=== PATIENT | male | born 1950 | race Caucasian/White ===

== ENCOUNTER 2021-01-31 12:20 | Outpatient (CLI) | payer MEDICARE, OTHER, SELFPAY ==
--- NOTE | 2021-01-31 17:51 | ONC CON_ITS ---
Dr. Alcantar New Patient Note Patient: Dmitriy Dos Santos Unit #: [id number]: 1950 Dicatated By: Singh Alcantar M.D.Date of Visit: Jan 31, 2021 Onc MED New Patient/Consult Referring Physician: Dr. Kayden Santos M.D. Chief Complaint: Prostate cancer. 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 His prostate cancer was initially diagnosed in 2015. The baseline PSA has not included in the records which are currently available. He underwent radical prostatectomy on 01/17/2016. Pathology showed Fannie score 7 (4+3) adenocarcinoma involving both lobes. The proportion of prostate involved was estimated at 10%. There was noted to be involvement of the left distal apical margin. There was no extraprostatic extension at the involved margin. There was no involvement in 8 lymph nodes. Pathologic staging was pT2c, pN0. His PSA became undetectable postoperatively. However, as of November 2016 it had increased to 0.1 ng/mL. He was then seen by Dr. Cano for radiation oncology consultation and he underwent salvage radiotherapy to the prostate bed. He completed treatment on 03/27/2017 to a total dose of 7200 cGy. A repeat PSA level on 04/30/2017 was down to 0.05 ng/mL. During subsequent follow-up he apparently has had detectable PSA at a very low level. As of 06/22/2020 it was 0.1 ng/mL. His repeat PSA level on 01/15/2021 was unchanged at 0.1 ng/mL. He is seen now for further management of the prostate cancer. He also is seeing Dr. Enamorado now. He feels pretty good generally, though he does tire out more easily than he used to. His ECOG score is 1. He has good appetite and his weight is stable. He has no fever, night sweats, or hot flashes. He does not complain of shortness of breath, cough, or chest pain. He has no GI complaints other than occasional heartburn, which he manages with [id number] medication. He does have urinary frequency and nocturia, and he has had some ongoing problems with incontinence since his radiation. He has joint pain, mainly in his knees. He says it has been getting worse during the past year. He does not complain of headache or dizziness and he has no focal neurologic symptoms. He has had some problems with anxiety and insomnia, those have been adequately managed with trazodone. Past Medical History: His medical history includes atrial fibrillation, hyperlipidemia, hypertension, and prostate cancer. Past Surgical History: He underwent robotic assisted radical prostatectomy on 01/17/2016. His other surgical/procedural history includes rthroscopic knee surgery, left inguinal hernia repair in 2019, and right inguinal hernia repair in 1989. Medications: Flecainide Acetate 1 Tablet (of 50 mg) Oral b.i.d., Lovastatin 1 Tablet (of 20 mg) Tablet Oral daily, Metoprolol Tartrate 0.5 Tablet (of 25 mg) Oral b.i.d., Oxybutynin Chloride ER 1 Tablet (of 5 mg) Tablet SR 24 HR Oral daily, traZODone HCl 1 Tablet (of 50 mg) Oral daily, Xarelto 1 Tablet (of 20 mg) Oral daily Allergies: No Known Allergies. Social History: Mr. Dos Santos is and he is retired. He has history of smoking for approximately 30 years, up to 2 packs of cigarettes daily. He quit smoking in 1996. He had some alcohol use as a teenager, but none since then. Family History: Father still living at age 95. He has valvular heart disease. Mother at age 88 with diabetes, kidney failure, and congestive heart failure. He has 4 brothers, 3 of whom have diabetes. His maternal grandmother had colon cancer. Review Of Symptoms: Constitutional - He generally feels pretty good. His energy is fair. He mostly has normal activity, but he does get tired very easily. His appetite is good and his weight is stable. No fever, night sweats, or hot flashes. ECOG score is 1, Eyes - No change in vision, ENMT - He has hearing loss and tinnitus. He has chronic seasonal allergies. No mouth sores. Denies any throat pain or dysphagia, Hematologic/Lymphatic - He has some bruising on his blood thinner, Respiratory - No shortness of breath. No cough. No pleuritic pain or hemoptysis, Cardiovascular - No angina pain. No palpitations, Gastrointestinal - No nausea or vomiting. He has occasional heartburn. No diarrhea or constipation. No blood in the stool or black stools, Genitourinary (M) - No dysuria or hematuria. He has urinary frequency with urgency. He has some incontinence, mainly at night, Musculoskeletal - He has joint pain, especially in his knees. It has been getting worse during the past year, Integumentary - No skin eruption, Neurologic - No headache or dizziness. No numbness or tingling. No other focal neurologic symptoms, Psychiatric - He has occasional mild anxiety. No depression. He sleeps well with trazodone. Vital Signs: Performed on Jan 31, 2021 12:57: 0, 0, 28.21, 2.21 sq.m, 73.00 in, 97 %, 57 /min (LOW), 18 /min, 148/80 mm(hg) (HIGH), 97.7 F (LOW), and 213.8 lbs (HIGH). Physical Examination: Constitutional - He appears to be in good general health, Eyes - Sclerae nonicteric. Conjunctivae clear, ENMT - No lesions noted in the oral cavity, Neck - No mass or thyromegaly, Hematologic/Lymphatic - No cervical, clavicular, or axillary adenopathy, Respiratory - Lungs are clear with good air movement bilaterally, Cardiovascular - Heart rhythm is regular. There is no murmur, gallop, or rub noted, Abdomen - Soft and non-tender. Liver and spleen are not enlarged. There is no abdominal mass or ascites noted and there is no inguinal adenopathy, Back/Spine - No spine or CVA tenderness noted, Extremities - No edema. He has good pedal pulses bilaterally, Integumentary - No rashes. No suspicious skin lesions noted, Neurologic - No focal neurologic deficits noted. Problem List: 1. Adenocarcinoma of the prostate, Foster score 7 (4+3), stage IIC at initial diagnosis in December 2015. 2. Hypertension. 3. Hyperlipidemia. 4. Atrial fibrillation. 5. Degenerative arthritis. Problems Addressed with this Encounter and Plan: Patient with adenocarcinoma of the prostate, Foster score 7 (4+3), for which he underwent radical prostatectomy on 01/17/2016. His disease was pathologic stage IIC (pT2c, pN0, M0), but with involved left distal apical margin. He had evidence of biochemical recurrence in November 2016. He then underwent salvage radiation to the prostate bed. He completed treatment on 03/27/2017 to a total dose of 7200 cGy. During follow-up his PSA remained detectable at a low level. As of 06/22/2020 it increased to 0.1 ng/mL compared to 0.05 ng/mL in April 2017. As of 01/15/2021 it remained stable at 0.1 ng/mL. We discussed the fact that the detectable PSA level is almost certainly an indication that there is residual prostate cancer. However, it is very unlikely that it would be identifiable by imaging, and there is certainly no indication that it is symptomatic. The next line of treatment will be androgen deprivation therapy. While it will undoubtedly be effective in controlling his disease, it also will add some side effects, and the issue at hand is at what point it will be appropriate for him to begin treatment. With his PSA level stable at a very low level, my recommendation would be to continue observation/expectant management. If it begins to show a significant increase, I will then have him undergo staging evaluation and consider starting treatment with an LHRH analog in combination with antiandrogen therapy. He is currently scheduled to have a yearly follow-up visit with Dr. Santos in May. He will have repeat PSA level with that visit. If it has not changed significantly, he can continue expectant management, and I will then schedule further follow-up with him at 3-month intervals. Signed By: Singh Alcantar M.D. <<Signature on File>>
== END 2021-01-31 12:21 | disposition home or self-care (01) ==
LOC: ONCMED 12:24
PROVIDERS: Family Provider Family Medicine; PCP Family Medicine; Visit Provider Internal Medicine Medical Oncology
DX: C61 Malignant neoplasm of prostate (principal); R33.9 Retention of urine, unspecified; Z90.79 Acquired absence of other genital organ(s); Z92.3 Personal history of irradiation
CPT/HCPCS: 81003; 99205

== ENCOUNTER → 2021-08-06 08:26 | Outpatient (BNVA) | payer MEDICARE, OTHER, SELFPAY | PROVIDERS: Family Provider Family Medicine; PCP Family Medicine; Visit Provider Urology | DX: C61 Malignant neoplasm of prostate (principal); N48.1 Balanitis; N39.3 Stress incontinence (female) (male) | CPT/HCPCS: 81003 ==

== ENCOUNTER 2021-08-26 10:35 | Outpatient (CLI) | payer MEDICARE, OTHER, SELFPAY ==
[2021-08-26 10:58] LABS: Basophils # 0.1 10^3/uL (0.0-0.1); Basophils % 0.7 %; Eosinophils # 0.3 10^3/uL (0.0-0.8); Eosinophils % 3.7 %; Hematocrit 44.3 % (42.0-52.0); Hemoglobin 14.3 g/dL (11.7-16.6); Lymphocytes # 1.6 10^3/uL (0.8-4.8); Mean Corpuscular HGB Conc 32.3 g/dL (30.0-36.0); Mean Corpuscular Hemoglobin 31.4 pg (28.0-34.0); Mean Corpuscular Volume 97.1 fl (80-94); Mean Platelet Volume 9.1 fL (7.4-10.4); Monocytes # 0.9 10^3/uL (0.2-0.9); Monocytes % 12.1 %; Neutrophils # 4.59 10^3/uL (1.8-7.7); Neutrophils % 62.2 %; Nucleated Red Blood Cells % 0 %; Platelet Count 233 10^3/cmm (130-400); Red Blood Count 4.56 10^6/uL (4.1-5.3); Red Cell Distribution Width 12.9 % (12.1-15.1); White Blood Count 7.4 10^3/uL (4.0-10.0)
[2021-08-26 11:26] LABS: Prostate Specific Antigen 0.078 ng/mL (0-4)
[2021-08-26 11:37] LABS: Alanine Aminotransferase 25 U/L (0-41); Albumin Level 4.1 g/dL (3.5-5.2); Alkaline Phosphatase 94 IU/L (40-130); Anion Gap 12.5 (5-19); Aspartate Amino Transferase 26 U/L (0-40); Blood Urea Nitrogen 16 mg/dL (8-23); Calcium 8.8 mg/dL (8.5-10.5); Carbon Dioxide 28 mmol/L (22-29); Chloride 101 mmol/L (98-107); Globulin 2.5 g/dL (1.3-4.6); Glucose 100 mg/dL (65-115); Osmolality Calculated 285 mOsm/kg (285-295); Potassium 4.5 mmol/L (3.5-5.1); Sodium 137 mmol/L (136-145); Total Bilirubin 0.8 mg/dL (0.15-1.2); Total Protein 6.6 g/dL (6.6-8.7)
--- NOTE | 2021-08-30 07:41 | ONC FU_ITS ---
Dr. Alcantar Patient Follow-Up Note Patient: Dmitriy Dos Santos Unit #: [id number]: 1950 Dicatated By: Singh Alcantar M.D.Date of Visit:Aug 26, 2021 Onc Med Follow-up/Prog Note Chief Complaint: Prostate cancer. 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 His prostate cancer was initially diagnosed in 2015. The baseline PSA has not included in the records which are currently available. He underwent radical prostatectomy on 01/17/2016. Pathology showed Ormsby score 7 (4+3) adenocarcinoma involving both lobes. The proportion of prostate involved was estimated at 10%. There was noted to be involvement of the left distal apical margin. There was no extraprostatic extension at the involved margin. There was no involvement in 8 lymph nodes. Pathologic staging was pT2c, pN0. His PSA became undetectable postoperatively. However, as of November 2016 it had increased to 0.1 ng/mL. He was then seen by Dr. Cano for radiation oncology consultation and he underwent salvage radiotherapy to the prostate bed. He completed treatment on 03/27/2017 to a total dose of 7200 cGy. A repeat PSA level on 04/30/2017 was down to 0.05 ng/mL. During subsequent follow-up he apparently has had detectable PSA at a very low level. As of 06/22/2020 it was 0.1 ng/mL. His repeat PSA level on 01/15/2021 was unchanged at 0.1 ng/mL. I had seen him initially on 01/31/2021. We discussed the option of initiating androgen deprivation, but with his being asymptomatic and having just slightly elevated PSA, we opted initially to manage with observation. His other medical illnesses include hypertension, hyperlipidemia, atrial fibrillation, and degenerative arthritis. He has history of smoking for 30 years, up to 2 packs of cigarettes daily, but he quit smoking back in 1996. He is seen for a follow-up visit. He reports having some mild fatigue. He also complains that he is sore all over, but that he attributes to physical activity. His ECOG score is 0. His appetite is pretty good. He does not have fever, night sweats, or hot flashes. He has some allergy related sinus symptoms and he occasionally has sore throat. He does not complain of cough, and he has not been having shortness of breath or chest pain. He has no GI complaints. Bladder function remains adequate, though he does have some leakage. He does not complain of headache or dizziness, and he has no focal neurologic symptoms. Medications: Flecainide Acetate 1 Tablet (of 50 mg) Oral b.i.d., Lovastatin 1 Tablet (of 20 mg) Tablet Oral daily, Metoprolol Tartrate 0.5 Tablet (of 25 mg) Oral b.i.d., Oxybutynin Chloride ER 1 Tablet (of 5 mg) Tablet SR 24 HR Oral daily, traZODone HCl 1 Tablet (of 50 mg) Oral daily, Xarelto 1 Tablet (of 20 mg) Oral daily Allergies: No Known Allergies. Vital Signs: Performed on Aug 26, 2021 12:31 Height - 73.00 in Weight - 217.4 lbs (HIGH) BSA - 2.23 sq.m BMI - 28.68 Temperature - 97.2 F (LOW) Pulse - 71 /min Respiration - 18 /min BP - 162/91 mm(hg) (HIGH) O2 Sat - 98 % Pain - 0 Fatigue - 0 Physical Examination: Constitutional - He looks good generally, Eyes - Sclerae nonicteric. Conjunctivae clear, ENMT - No lesions noted in the oral cavity, Hematologic/Lymphatic - No cervical, clavicular, or axillary adenopathy, Respiratory - Lungs are clear with good air movement bilaterally, Cardiovascular - Heart rhythm is regular. There is no murmur, gallop, or rub noted, Abdomen - Soft. Liver and spleen are not enlarged. There is no abdominal mass or ascites noted and there is no inguinal adenopathy, Extremities - No edema, Neurologic - No focal neurologic deficits noted. Lab/Imaging: Test performed on Aug 26, 2021 10:00 Sodium 137 mmol/L Potassium 4.5 mmol/L Chloride 101 mmol/L CO2 28 mmol/L Anion Gap 12.5 BUN 16 mg/dL Creatinine 0.9 mg/dL Cr Clearance (Est) 105.00 mL/min Glucose 100 mg/dL Osmolality - Calculated 285 mOsm/kg Calcium 8.8 mg/dL Protein, Total 6.6 g/dL Albumin 4.1 g/dL Globulin 2.5 g/dL Bilirubin, Total 0.8 mg/dL ALT (SGPT) 25 U/L AST (SGOT) 26 U/L Alkaline Phosphatase 94 IU/L WBC 7.4 10 3/uL RBC 4.56 10 6/uL HGB 14.3 g/dL HCT 44.3 % MCV 97.1 fl MCH 31.4 pg MCHC 32.3 g/dL RDW 12.9 % Platelet Count 233 10 3/cmm MPV 9.1 fL Neutrophils 4.59 10 3/uL Lymphocytes 1.6 10 3/uL Monocytes 0.9 10 3/uL Eosinophils 0.3 10 3/uL Basophils 0.1 10 3/uL Neutrophil % 62.2 % Lymphocyte % 21.0 % Monocyte % 12.1 % Eosinophil % 3.7 % Basophils % 0.7 % NRBC % 0 % PSA 0.078 ng/mL Problem List: 1. Adenocarcinoma of the prostate, Fannie score 7 (4+3), stage IIC at initial diagnosis in December 2015. 2. Hypertension. 3. Hyperlipidemia. 4. Atrial fibrillation. 5. Degenerative arthritis. Problems Addressed with this Encounter and Plan: Patient with adenocarcinoma of the prostate, Fannie score 7 (4+3), for which he underwent radical prostatectomy on 01/17/2016. His disease was pathologic stage IIC (pT2c, pN0, M0), but with involved left distal apical margin. He had evidence of biochemical recurrence in November 2016. He then underwent salvage radiation to the prostate bed. He completed treatment on 03/27/2017 to a total dose of 7200 cGy. During follow-up his PSA remained detectable at a low level. As of 06/22/2020 it increased to 0.1 ng/mL compared to 0.05 ng/mL in April 2017. As of 01/15/2021 it remained stable at 0.1 ng/mL. I had seen him initially in January 2021. In this setting of asymptomatic disease which is slightly elevated PSA, we opted initially to just follow on expectant management. At this point he appears to be doing very well clinically, and thus far there has been no further increase in the PSA level. As such, I will continue to follow him expectantly. He will be scheduled for repeat PSA level in 3 months and for a follow-up visit in 6 months. Signed By: Singh Alcantar M.D. <<Signature on File>>
== END 2021-08-26 10:36 | disposition home or self-care (01) ==
LOC: ONCMED 10:39
PROVIDERS: Family Provider Family Medicine; PCP Family Medicine; Visit Provider Internal Medicine Medical Oncology
DX: Z85.46 Personal history of malignant neoplasm of prostate (principal); I10 Essential (primary) hypertension; E78.2 Mixed hyperlipidemia; I48.91 Unspecified atrial fibrillation; Z87.891 Personal history of nicotine dependence; Z79.899 Other long term (current) drug therapy
CPT/HCPCS: 36415; 80053; 84153; 85025; 99214

== ENCOUNTER 2021-12-04 09:21 | Outpatient (CLI) | payer MEDICARE, OTHER, SELFPAY | END 2021-12-04 09:22 | disposition home or self-care (01) | LOC: ONCMED 09:35 | PROVIDERS: Family Provider Family Medicine; PCP Family Medicine; Visit Provider Internal Medicine Medical Oncology | DX: C61 Malignant neoplasm of prostate (principal) | CPT/HCPCS: 36415; 84153 ==

== ENCOUNTER → 2022-01-07 11:22 | Outpatient (BNVA) | payer MEDICARE, OTHER, SELFPAY | PROVIDERS: Family Provider Family Medicine; PCP Family Medicine; Visit Provider Nurse Practitioner Family | DX: N39.3 Stress incontinence (female) (male) (principal); N48.1 Balanitis; C61 Malignant neoplasm of prostate | CPT/HCPCS: 81003 ==

== ENCOUNTER → 2022-02-05 07:56 | Outpatient (BNVA) | payer MEDICARE, OTHER, SELFPAY | PROVIDERS: Family Provider Family Medicine; PCP Family Medicine; Visit Provider Nurse Practitioner Family | DX: N39.3 Stress incontinence (female) (male) (principal); N48.1 Balanitis | CPT/HCPCS: 81003 ==

== ENCOUNTER 2022-02-26 10:59 | Oncology outpatient (recurring) (ONCR) | payer MEDICARE, OTHER, SELFPAY | END 2022-03-25 23:59 | disposition home or self-care (01) | PROVIDERS: Family Provider Family Medicine; PCP Family Medicine; Visit Provider Internal Medicine Medical Oncology | DX: Z08 Encounter for follow-up examination after completed treatment for malignant neoplasm (principal); Z85.46 Personal history of malignant neoplasm of prostate; R97.21 Rising PSA following treatment for malignant neoplasm of prostate; Z92.3 Personal history of irradiation; Z87.891 Personal history of nicotine dependence | CPT/HCPCS: 80053; 84153; 85025; 99999; G0463 ==

== ENCOUNTER 2022-05-29 08:51 | Oncology outpatient (recurring) (ONCR) | payer MEDICARE, OTHER, SELFPAY ==
[2022-05-29 10:02] LABS: Prostate Specific Antigen 0.114 ng/mL (0-4)
== END 2022-06-25 23:59 | disposition home or self-care (01) ==
PROVIDERS: Family Provider Family Medicine; PCP Family Medicine; Visit Provider Internal Medicine Medical Oncology
DX: C61 Malignant neoplasm of prostate (principal)
CPT/HCPCS: 36415; 84153

== ENCOUNTER → 2022-08-07 09:42 | Outpatient (BNVA) | payer MEDICARE, OTHER, SELFPAY | PROVIDERS: Family Provider Family Medicine; PCP Family Medicine; Visit Provider Urology | DX: C61 Malignant neoplasm of prostate (principal); N48.1 Balanitis; R32 Unspecified urinary incontinence | CPT/HCPCS: 81003; 99213 ==

== ENCOUNTER 2022-08-28 08:03 | Oncology outpatient (recurring) (ONCR) | payer MEDICARE, OTHER, SELFPAY ==
[2022-08-28 09:00] LABS: Basophils # 0.1 10^3/uL (0.0-0.1); Eosinophils # 0.3 10^3/uL (0.0-0.8); Eosinophils % 4.4 %; Hematocrit 43.5 % (42.0-52.0); Hemoglobin 13.9 g/dL (11.7-16.6); Mean Corpuscular Hemoglobin 31.2 pg (28.0-34.0); Mean Corpuscular Volume 97.5 fl (80-94); Mean Platelet Volume 9.5 fL (7.4-10.4); Monocytes # 0.7 10^3/uL (0.2-0.9); Monocytes % 11.1 %; Neutrophils # 4.13 10^3/uL (1.8-7.7); Neutrophils % 67.2 %; Nucleated Red Blood Cells % 0 %; Platelet Count 205 10^3/cmm (130-400); Red Blood Count 4.46 10^6/uL (4.1-5.3); White Blood Count 6.1 10^3/uL (4.0-10.0)
[2022-08-28 09:40] LABS: Alanine Aminotransferase 18 U/L (0-41); Albumin Level 4.2 g/dL (3.5-5.2); Alkaline Phosphatase 92 U/L (40-130); Anion Gap 11.2 (5-19); Aspartate Amino Transferase 22 U/L (0-40); Blood Urea Nitrogen 16 mg/dL (8-23); Carbon Dioxide 29 mmol/L (22-29); Chloride 102 mmol/L (98-107); Globulin 2.5 g/dL (1.3-4.6); Glucose 90 mg/dL (65-115); Osmolality Calculated 287 mOsm/kg (285-295); Potassium 4.2 mmol/L (3.5-5.1); Prostate Specific Antigen 0.114 ng/mL (0-4); Sodium 138 mmol/L (136-145); Total Bilirubin 0.7 mg/dL (0.15-1.2); Total Protein 6.7 g/dL (6.6-8.7)
== END 2022-09-24 23:59 | disposition home or self-care (01) ==
PROVIDERS: Family Provider Family Medicine; PCP Family Medicine; Visit Provider Internal Medicine Medical Oncology
DX: Z08 Encounter for follow-up examination after completed treatment for malignant neoplasm (principal); Z85.46 Personal history of malignant neoplasm of prostate; Z90.89 Acquired absence of other organs; Z92.3 Personal history of irradiation; Z87.891 Personal history of nicotine dependence
CPT/HCPCS: 36415; 80053; 84153; 85025; 99213

== ENCOUNTER 2023-01-24 01:00 | Outpatient (RCR) | payer MEDICARE, OTHER, SELFPAY | END 2023-02-22 23:59 | disposition home or self-care (01) | LOC: APT 01:00 | PROVIDERS: Visit Provider Orthopaedic Surgery | DX: M17.0 Bilateral primary osteoarthritis of knee (principal) | CPT/HCPCS: 97110; 97161 ==

== ENCOUNTER → 2023-01-29 09:39 | Outpatient (BNVA) | payer MEDICARE, OTHER, SELFPAY | PROVIDERS: PCP Family Medicine; Visit Provider Urology | DX: C61 Malignant neoplasm of prostate (principal); N48.1 Balanitis; Z90.79 Acquired absence of other genital organ(s); R32 Unspecified urinary incontinence | CPT/HCPCS: 51798; 81003; 99213 ==

== ENCOUNTER 2023-02-23 06:00 | Outpatient (RCR) | payer MEDICARE, OTHER, SELFPAY | END 2023-03-25 23:59 | disposition home or self-care (01) | LOC: APT 06:00 | PROVIDERS: Visit Provider Orthopaedic Surgery | DX: M17.0 Bilateral primary osteoarthritis of knee (principal) | CPT/HCPCS: 97110; 97112; 97530 ==

== ENCOUNTER 2023-03-04 11:42 | Oncology outpatient (recurring) (ONCR) | payer MEDICARE, OTHER, SELFPAY ==
[2023-03-04 13:45] LABS: Prostate Specific Antigen 0.182 ng/mL (0-4)
== END 2023-03-25 23:59 | disposition home or self-care (01) ==
PROVIDERS: PCP Family Medicine; Visit Provider Internal Medicine Medical Oncology
DX: C61 Malignant neoplasm of prostate; Z90.89 Acquired absence of other organs; Z79.818 Long term (current) use of other agents affecting estrogen receptors and estrogen levels; Z87.891 Personal history of nicotine dependence
CPT/HCPCS: 36415; 80053; 84153; 85025; 99214

== ENCOUNTER 2023-06-01 12:52 | Oncology outpatient (recurring) (ONCR) | payer MEDICARE, OTHER, SELFPAY ==
[2023-06-01 12:55] VITALS: BP 172/79; PULSE 64; RESP 18; TEMP 36.2; O2SAT 96
[2023-06-01 14:59] LABS: Prostate Specific Antigen 0.282 ng/mL (0-4)
== END 2023-06-25 23:59 | disposition home or self-care (01) ==
PROVIDERS: PCP Family Medicine; Visit Provider Internal Medicine Medical Oncology
DX: C61 Malignant neoplasm of prostate (principal); Z53.9 Procedure and treatment not carried out, unspecified reason
CPT/HCPCS: 36415; 84153

== ENCOUNTER 2023-09-07 10:50 | Oncology outpatient (recurring) (ONCR) | payer MEDICARE, OTHER, SELFPAY ==
[2023-09-07 10:56] VITALS: BP 151/83; PULSE 76; RESP 16; TEMP 36.5; O2SAT 97
[2023-09-07 11:10] LABS: Basophils # 0.1 10^3/uL (0.0-0.1); Basophils % 0.7 %; Eosinophils # 0.3 10^3/uL (0.0-0.8); Eosinophils % 3.3 %; Hematocrit 41.4 % (37-53); Lymphocytes # 1.1 10^3/uL (0.8-4.8); Lymphocytes % 14.9 %; Mean Corpuscular HGB Conc 32.9 g/dL (30-55); Mean Corpuscular Hemoglobin 31.5 pg (27-33); Mean Corpuscular Volume 95.8 fl (82-101); Mean Platelet Volume 8.8 fL (7.4-10.4); Monocytes # 0.7 10^3/uL (0.2-0.9); Monocytes % 9.3 %; Neutrophils # 5.39 10^3/uL (1.8-7.7); Neutrophils % 71.4 %; Nucleated Red Blood Cells % 0 %; Platelet Count 224 10^3/cmm (157-399); Red Blood Count 4.32 10^6/uL (3.85-5.65); Red Cell Distribution Width 12.7 % (12.1-15.1); White Blood Count 7.54 10^3/uL (3.29-11.43)
[2023-09-07 11:43] LABS: Alanine Aminotransferase 19 U/L (0-41); Albumin Level 4.1 g/dL (3.5-5.2); Alkaline Phosphatase 119 U/L (40-130); Aspartate Amino Transferase 23 U/L (0-40); Blood Urea Nitrogen 15 mg/dL (8-23); Carbon Dioxide 29 mmol/L (22-29); Chloride 103 mmol/L (98-107); Globulin 2.8 g/dL (1.3-4.6); Glucose 137 mg/dL (65-115); Osmolality Calculated 291 mOsm/kg (285-295); Prostate Specific Antigen 0.565 ng/mL (0-4); Sodium 139 mmol/L (136-145); Total Bilirubin 0.5 mg/dL (0.15-1.2); Total Protein 6.9 g/dL (6.6-8.7)
[2023-09-07 11:44] LABS: Anion Gap 11.6 (5-19); Potassium 4.6 mmol/L (3.5-5.1)
== END 2023-09-24 23:59 | disposition home or self-care (01) ==
PROVIDERS: PCP Family Medicine; Visit Provider Internal Medicine Medical Oncology
DX: C61 Malignant neoplasm of prostate (principal); Z79.899 Other long term (current) drug therapy
CPT/HCPCS: 36415; 80053; 84153; 85025; 99214

== ENCOUNTER 2023-12-10 11:20 | Oncology outpatient (recurring) (ONCR) | payer MEDICARE, OTHER, SELFPAY ==
[2023-12-10 12:18] LABS: Basophils % 0.5 %; Eosinophils # 0.2 10^3/uL (0.0-0.8); Eosinophils % 1.9 %; Hematocrit 43.6 % (37-53); Lymphocytes # 1.8 10^3/uL (0.8-4.8); Lymphocytes % 22.8 %; Mean Corpuscular HGB Conc 32.6 g/dL (30-55); Mean Corpuscular Hemoglobin 30.3 pg (27-33); Mean Platelet Volume 8.7 fL (7.4-10.4); Monocytes # 0.8 10^3/uL (0.2-0.9); Neutrophils # 5.07 10^3/uL (1.8-7.7); Neutrophils % 64.4 %; Nucleated Red Blood Cells % 0 %; Platelet Count 224 10^3/cmm (157-399); Red Blood Count 4.69 10^6/uL (3.85-5.65); White Blood Count 7.88 10^3/uL (3.29-11.43)
[2023-12-10 12:59] LABS: Alanine Aminotransferase 19 U/L (0-41); Albumin Level 4.1 g/dL (3.5-5.2); Alkaline Phosphatase 119 U/L (40-130); Anion Gap 12.2 (5-19); Aspartate Amino Transferase 22 U/L (0-40); Blood Urea Nitrogen 22 mg/dL (8-23); Calcium 8.7 mg/dL (8.5-10.5); Carbon Dioxide 26 mmol/L (22-29); Chloride 99 mmol/L (98-107); Globulin 2.7 g/dL (1.3-4.6); Glucose 93 mg/dL (65-115); Osmolality Calculated 279 mOsm/kg (285-295); Potassium 4.2 mmol/L (3.5-5.1); Prostate Specific Antigen 0.718 ng/mL (0-4); Sodium 133 mmol/L (136-145); Total Bilirubin 0.7 mg/dL (0.15-1.2); Total Protein 6.8 g/dL (6.6-8.7)
== END 2023-12-24 23:59 | disposition home or self-care (01) ==
PROVIDERS: PCP Family Medicine; Visit Provider Internal Medicine Medical Oncology
DX: Z08 Encounter for follow-up examination after completed treatment for malignant neoplasm (principal); Z90.79 Acquired absence of other genital organ(s); Z85.46 Personal history of malignant neoplasm of prostate; R97.21 Rising PSA following treatment for malignant neoplasm of prostate
CPT/HCPCS: 36415; 80053; 84153; 85025; 99213

== ENCOUNTER 2024-03-10 14:11 | Oncology outpatient (recurring) (ONCR) | payer MEDICARE, OTHER, SELFPAY ==
[2024-03-10 14:34] LABS: Basophils # 0.1 10^3/uL (0.0-0.1); Basophils % 0.6 %; Eosinophils # 0.2 10^3/uL (0.0-0.8); Eosinophils % 2.4 %; Hematocrit 40.8 % (37-53); Lymphocytes # 1.3 10^3/uL (0.8-4.8); Mean Corpuscular HGB Conc 32.6 g/dL (30-55); Mean Corpuscular Hemoglobin 29.9 pg (27-33); Mean Corpuscular Volume 91.7 fl (82-101); Mean Platelet Volume 8.7 fL (7.4-10.4); Monocytes # 0.6 10^3/uL (0.2-0.9); Monocytes % 7.7 %; Neutrophils # 5.97 10^3/uL (1.8-7.7); Neutrophils % 72.9 %; Nucleated Red Blood Cells % 0 %; Platelet Count 239 10^3/cmm (157-399); Red Blood Count 4.45 10^6/uL (3.85-5.65); Red Cell Distribution Width 14.2 % (12.1-15.1); White Blood Count 8.19 10^3/uL (3.29-11.43)
[2024-03-10 15:01] LABS: Alanine Aminotransferase 16 U/L (0-41); Albumin Level 3.9 g/dL (3.5-5.2); Alkaline Phosphatase 117 U/L (40-130); Anion Gap 13.1 (5-19); Aspartate Amino Transferase 21 U/L (0-40); Blood Urea Nitrogen 19 mg/dL (8-23); Calcium 8.9 mg/dL (8.5-10.5); Carbon Dioxide 25 mmol/L (22-29); Chloride 98 mmol/L (98-107); Globulin 2.9 g/dL (1.3-4.6); Glucose 177 mg/dL (65-115); Osmolality Calculated 281 mOsm/kg (285-295); Potassium 4.1 mmol/L (3.5-5.1); Prostate Specific Antigen 0.789 ng/mL (0-4); Sodium 132 mmol/L (136-145); Total Bilirubin 0.6 mg/dL (0.15-1.2); Total Protein 6.8 g/dL (6.6-8.7)
== END 2024-03-25 23:59 | disposition home or self-care (01) ==
PROVIDERS: PCP Family Medicine; Visit Provider Internal Medicine Medical Oncology
DX: C61 Malignant neoplasm of prostate (principal)
CPT/HCPCS: 36415; 80053; 84153; 85025

== ENCOUNTER 2024-06-09 12:43 | Oncology outpatient (recurring) (ONCR) | payer MEDICARE, OTHER, SELFPAY ==
[2024-06-09 13:24] LABS: Basophils # 0.1 10^3/uL (0.0-0.1); Basophils % 0.7 %; Eosinophils # 0.2 10^3/uL (0.0-0.8); Eosinophils % 2.5 %; Hematocrit 42.4 % (37-53); Lymphocytes # 1.5 10^3/uL (0.8-4.8); Lymphocytes % 21.6 %; Mean Corpuscular Hemoglobin 31.2 pg (27-33); Mean Corpuscular Volume 94.4 fl (82-101); Mean Platelet Volume 8.7 fL (7.4-10.4); Monocytes # 0.7 10^3/uL (0.2-0.9); Monocytes % 9.9 %; Neutrophils # 4.38 10^3/uL (1.8-7.7); Nucleated Red Blood Cells % 0 %; Platelet Count 215 10^3/cmm (157-399); Red Blood Count 4.49 10^6/uL (3.85-5.65); Red Cell Distribution Width 13.7 % (12.1-15.1); White Blood Count 6.75 10^3/uL (3.29-11.43)
[2024-06-09 13:54] LABS: Alanine Aminotransferase 18 U/L (0-41); Alkaline Phosphatase 117 U/L (40-130); Anion Gap 15.8 (5-19); Aspartate Amino Transferase 20 U/L (0-40); Blood Urea Nitrogen 16 mg/dL (8-23); Calcium 8.3 mg/dL (8.5-10.5); Carbon Dioxide 25 mmol/L (22-29); Chloride 102 mmol/L (98-107); Globulin 2.5 g/dL (1.3-4.6); Glucose 116 mg/dL (65-115); Osmolality Calculated 290 mOsm/kg (285-295); Potassium 3.8 mmol/L (3.5-5.1); Sodium 139 mmol/L (136-145); Total Bilirubin 0.6 mg/dL (0.15-1.2); Total Protein 6.5 g/dL (6.6-8.7)
== END 2024-06-25 23:59 | disposition home or self-care (01) ==
PROVIDERS: PCP Family Medicine; Visit Provider Internal Medicine Medical Oncology
DX: C61 Malignant neoplasm of prostate (principal); Z87.891 Personal history of nicotine dependence; Z92.3 Personal history of irradiation
CPT/HCPCS: 36415; 80053; 84153; 85025; 99213

== ENCOUNTER 2024-09-08 14:17 | Oncology outpatient (recurring) (ONCR) | payer MEDICARE, OTHER, SELFPAY ==
[2024-09-08 14:40] LABS: Basophils # 0.1 10^3/uL (0.0-0.1); Basophils % 0.8 %; Eosinophils # 0.3 10^3/uL (0.0-0.8); Eosinophils % 3.9 %; Hematocrit 41.4 % (37-53); Lymphocytes # 1.6 10^3/uL (0.8-4.8); Lymphocytes % 21.1 %; Mean Corpuscular HGB Conc 32.4 g/dL (30-55); Mean Corpuscular Hemoglobin 30.8 pg (27-33); Mean Corpuscular Volume 95.2 fl (82-101); Mean Platelet Volume 8.4 fL (7.4-10.4); Monocytes # 0.8 10^3/uL (0.2-0.9); Monocytes % 11.4 %; Neutrophils # 4.62 10^3/uL (1.8-7.7); Neutrophils % 62.5 %; Nucleated Red Blood Cells % 0 %; Platelet Count 227 10^3/cmm (157-399); Red Blood Count 4.35 10^6/uL (3.85-5.65); Red Cell Distribution Width 13.2 % (12.1-15.1); White Blood Count 7.39 10^3/uL (3.29-11.43)
[2024-09-08 15:09] LABS: Alanine Aminotransferase 19 U/L (0-41); Albumin Level 4.1 g/dL (3.5-5.2); Alkaline Phosphatase 121 U/L (40-130); Anion Gap 14.2 (5-19); Aspartate Amino Transferase 22 U/L (0-40); Blood Urea Nitrogen 18 mg/dL (8-23); Carbon Dioxide 25 mmol/L (22-29); Chloride 103 mmol/L (98-107); Globulin 2.3 g/dL (1.3-4.6); Glucose 104 mg/dL (65-115); Osmolality Calculated 288 mOsm/kg (285-295); Potassium 4.2 mmol/L (3.5-5.1); Prostate Specific Antigen 0.817 ng/mL (0-4); Sodium 138 mmol/L (136-145); Total Bilirubin 0.5 mg/dL (0.15-1.2); Total Protein 6.4 g/dL (6.6-8.7)
== END 2024-09-24 23:59 | disposition home or self-care (01) ==
PROVIDERS: Nurse Practitioner Family; PCP Family Medicine; Visit Provider Internal Medicine Medical Oncology
DX: C61 Malignant neoplasm of prostate (principal)
CPT/HCPCS: 36415; 80053; 84153; 85025

== ENCOUNTER 2024-09-28 12:36 | Oncology outpatient (recurring) (ONCR) | payer MEDICARE, OTHER, SELFPAY ==
[2024-09-28 13:25] LABS: Basophils # 0.1 10^3/uL (0.0-0.1); Basophils % 0.6 %; Eosinophils # 0.3 10^3/uL (0.0-0.8); Eosinophils % 3.5 %; Hematocrit 40.3 % (37-53); Lymphocytes # 1.3 10^3/uL (0.8-4.8); Lymphocytes % 16.3 %; Mean Corpuscular HGB Conc 32.3 g/dL (30-55); Mean Corpuscular Hemoglobin 30.2 pg (27-33); Mean Corpuscular Volume 93.7 fl (82-101); Mean Platelet Volume 8.8 fL (7.4-10.4); Monocytes # 0.7 10^3/uL (0.2-0.9); Monocytes % 9.1 %; Neutrophils # 5.64 10^3/uL (1.8-7.7); Neutrophils % 70.4 %; Nucleated Red Blood Cells % 0 %; Platelet Count 221 10^3/cmm (157-399); Red Cell Distribution Width 13.2 % (12.1-15.1); White Blood Count 8.02 10^3/uL (3.29-11.43)
[2024-09-28 13:54] LABS: Alanine Aminotransferase 16 U/L (0-41); Albumin Level 4.1 g/dL (3.5-5.2); Alkaline Phosphatase 132 U/L (40-130); Anion Gap 14.9 (5-19); Aspartate Amino Transferase 20 U/L (0-40); Blood Urea Nitrogen 18 mg/dL (8-23); Carbon Dioxide 25 mmol/L (22-29); Chloride 102 mmol/L (98-107); Creatinine Clr Calc Pharmacy 78.7054; Globulin 2.8 g/dL (1.3-4.6); Glucose 111 mg/dL (65-115); Osmolality Calculated 289 mOsm/kg (285-295); Potassium 3.9 mmol/L (3.5-5.1); Prostate Specific Antigen 0.734 ng/mL (0-4); Sodium 138 mmol/L (136-145); Total Bilirubin 0.5 mg/dL (0.15-1.2); Total Protein 6.9 g/dL (6.6-8.7)
== END 2024-10-25 23:59 | disposition home or self-care (01) ==
PROVIDERS: Internal Medicine Medical Oncology; PCP Family Medicine; Visit Provider Internal Medicine Medical Oncology
DX: C61 Malignant neoplasm of prostate (principal)
CPT/HCPCS: 36415; 80053; 84153; 85025; 99214

== ENCOUNTER 2024-11-07 06:00 | Outpatient (RCR) | payer MEDICARE, OTHER, SELFPAY | END 2024-11-25 23:59 | disposition home or self-care (01) | LOC: APT 06:00 | PROVIDERS: Visit Provider Orthopaedic Surgery | DX: Z47.1 Aftercare following joint replacement surgery (principal); Z96.651 Presence of right artificial knee joint | CPT/HCPCS: 97110; 97112; 97140; 97162; 97530 ==

== ENCOUNTER 2024-11-26 06:30 | Outpatient (RCR) | payer MEDICARE, OTHER, SELFPAY | END 2024-12-23 23:59 | disposition home or self-care (01) | LOC: APT 06:30 | PROVIDERS: Visit Provider Orthopaedic Surgery | DX: Z47.1 Aftercare following joint replacement surgery (principal); Z96.651 Presence of right artificial knee joint | CPT/HCPCS: 97110; 97112; 97140; 97530 ==

== ENCOUNTER 2024-12-24 06:00 | Outpatient (RCR) | payer MEDICARE, OTHER, SELFPAY | END 2025-01-23 23:59 | disposition home or self-care (01) | LOC: APT 06:00 | PROVIDERS: Visit Provider Orthopaedic Surgery | DX: Z47.1 Aftercare following joint replacement surgery (principal); Z96.651 Presence of right artificial knee joint | CPT/HCPCS: 97110; 97112; 97530 ==

== ENCOUNTER 2024-12-28 11:52 | Oncology outpatient (recurring) (ONCR) | payer MEDICARE, OTHER, SELFPAY ==
[2024-12-28 12:03] LABS: Basophils % 0.2 %; Eosinophils # 0.1 10^3/uL (0.0-0.8); Eosinophils % 1.6 %; Hematocrit 40.7 % (37-53); Lymphocytes # 1.6 10^3/uL (0.8-4.8); Lymphocytes % 17.8 %; Mean Corpuscular HGB Conc 31.2 g/dL (30-55); Mean Corpuscular Hemoglobin 28.2 pg (27-33); Mean Corpuscular Volume 90.4 fl (82-101); Mean Platelet Volume 8.2 fL (7.4-10.4); Monocytes # 0.8 10^3/uL (0.2-0.9); Monocytes % 8.7 %; Neutrophils # 6.27 10^3/uL (1.8-7.7); Neutrophils % 71.4 %; Nucleated Red Blood Cells % 0 %; Platelet Count 280 10^3/cmm (157-399); Red Cell Distribution Width 14.3 % (12.1-15.1); White Blood Count 8.78 10^3/uL (3.29-11.43)
[2024-12-28 12:32] LABS: Alanine Aminotransferase 17 U/L (0-41); Alkaline Phosphatase 189 U/L (40-130); Anion Gap 14.8 (5-19); Aspartate Amino Transferase 18 U/L (0-40); Blood Urea Nitrogen 12 mg/dL (8-23); Calcium 9.2 mg/dL (8.5-10.5); Carbon Dioxide 27 mmol/L (22-29); Chloride 101 mmol/L (98-107); Globulin 3.1 g/dL (1.3-4.6); Glucose 139 mg/dL (65-115); Osmolality Calculated 290 mOsm/kg (285-295); Potassium 3.8 mmol/L (3.5-5.1); Prostate Specific Antigen 0.864 ng/mL (0-4); Sodium 139 mmol/L (136-145); Total Bilirubin 0.5 mg/dL (0.15-1.2); Total Protein 7.1 g/dL (6.6-8.7)
== END 2025-01-23 23:59 | disposition home or self-care (01) ==
PROVIDERS: Internal Medicine Medical Oncology; Visit Provider Internal Medicine
DX: Z08 Encounter for follow-up examination after completed treatment for malignant neoplasm (principal); Z85.46 Personal history of malignant neoplasm of prostate; Z87.891 Personal history of nicotine dependence; Z90.79 Acquired absence of other genital organ(s); Z92.3 Personal history of irradiation
CPT/HCPCS: 36415; 80053; 84153; 85025; 99214

== ENCOUNTER 2025-01-24 06:00 | Outpatient (RCR) | payer MEDICARE, OTHER, SELFPAY | END 2025-02-22 23:59 | disposition home or self-care (01) | LOC: APT 06:00 | PROVIDERS: Visit Provider Orthopaedic Surgery | DX: Z47.1 Aftercare following joint replacement surgery (principal); Z96.651 Presence of right artificial knee joint | CPT/HCPCS: 97110; 97112; 97140; 97530 ==

== ENCOUNTER 2025-02-23 05:00 | Outpatient (RCR) | payer MEDICARE, OTHER, SELFPAY | END 2025-03-25 23:59 | disposition home or self-care (01) | LOC: APT 05:00 | PROVIDERS: Visit Provider Orthopaedic Surgery | DX: Z47.1 Aftercare following joint replacement surgery (principal); Z96.651 Presence of right artificial knee joint | CPT/HCPCS: 97110; 97112; 97530 ==

== ENCOUNTER 2025-03-29 12:35 | Oncology outpatient (recurring) (ONCR) | payer MEDICARE, OTHER, SELFPAY ==
[2025-03-29 13:11] LABS: Basophils % 0.3 %; Eosinophils # 0.1 10^3/uL (0.0-0.8); Eosinophils % 1.4 %; Hematocrit 38.7 % (37-53); Lymphocytes # 1.5 10^3/uL (0.8-4.8); Lymphocytes % 16.2 %; Mean Corpuscular HGB Conc 30.7 g/dL (30-55); Mean Platelet Volume 8.6 fL (7.4-10.4); Monocytes # 0.6 10^3/uL (0.2-0.9); Monocytes % 6.1 %; Neutrophils # 6.93 10^3/uL (1.8-7.7); Neutrophils % 75.6 %; Nucleated Red Blood Cells % 0 %; Platelet Count 253 10^3/cmm (157-399); Red Cell Distribution Width 14.7 % (12.1-15.1); White Blood Count 9.18 10^3/uL (3.29-11.43)
[2025-03-29 13:40] LABS: Alanine Aminotransferase 11 U/L (0-41); Albumin Level 3.9 g/dL (3.5-5.2); Alkaline Phosphatase 151 U/L (40-130); Anion Gap 15.9 (5-19); Aspartate Amino Transferase 15 U/L (0-40); Blood Urea Nitrogen 17 mg/dL (8-23); Calcium 8.8 mg/dL (8.5-10.5); Carbon Dioxide 26 mmol/L (22-29); Chloride 99 mmol/L (98-107); Glucose 155 mg/dL (65-115); Osmolality Calculated 289 mOsm/kg (285-295); Potassium 3.9 mmol/L (3.5-5.1); Sodium 137 mmol/L (136-145); Total Bilirubin 0.6 mg/dL (0.15-1.2); Total Protein 6.9 g/dL (6.6-8.7)
== END 2025-04-24 23:59 | disposition home or self-care (01) ==
PROVIDERS: Visit Provider Internal Medicine
DX: Z08 Encounter for follow-up examination after completed treatment for malignant neoplasm (principal); Z85.46 Personal history of malignant neoplasm of prostate; Z87.891 Personal history of nicotine dependence; Z90.79 Acquired absence of other genital organ(s); Z92.3 Personal history of irradiation; I48.91 Unspecified atrial fibrillation; R97.20 Elevated prostate specific antigen [PSA]
CPT/HCPCS: 36415; 80053; 84153; 85025; 99213

== ENCOUNTER 2025-07-25 13:00 | Oncology outpatient (recurring) (ONCR) | payer MEDICARE, OTHER, SELFPAY ==
[2025-07-11 12:25] LABS: Hematocrit 38.6 % (37-53); Hemoglobin 12.40 g/dL (11.27-16.99); Mean Corpuscular HGB Conc 32.1 g/dL (30-55); Mean Corpuscular Hemoglobin 27.9 pg (27-33); Mean Corpuscular Volume 86.9 fl (82-101); Nucleated Red Blood Cells % 0 %; Platelet Count 246 10^3/cmm (157-399); Red Blood Count 4.44 10^6/uL (3.85-5.65); White Blood Count 8.00 10^3/uL (3.29-11.43)
[2025-07-11 12:54] LABS: Alanine Aminotransferase 11 U/L (0-41); Albumin Level 3.9 g/dL (3.5-5.2); Alkaline Phosphatase 139 U/L (40-130); Anion Gap 14.9 (5-19); Aspartate Amino Transferase 17 U/L (0-40); Blood Urea Nitrogen 16 mg/dL (8-23); Calcium 8.1 mg/dL (8.5-10.5); Carbon Dioxide 23 mmol/L (22-29); Chloride 104 mmol/L (98-107); Globulin 2.8 g/dL (1.3-4.6); Glucose 119 mg/dL (65-115); Osmolality Calculated 288 mOsm/kg (285-295); Potassium 3.9 mmol/L (3.5-5.1); Prostate Specific Antigen 2.900 ng/mL (0-4); Sodium 138 mmol/L (136-145); Total Protein 6.7 g/dL (6.6-8.7)
[2025-07-25] MEDS: leuprolide 22.5 mg Kit IM ×2 (13:40→13:45)
== END 2025-07-25 23:59 | disposition home or self-care (01) ==
PROVIDERS: Internal Medicine; Visit Provider Internal Medicine Medical Oncology
DX: Z53.9 Procedure and treatment not carried out, unspecified reason; Z51.11 Encounter for antineoplastic chemotherapy; C61 Malignant neoplasm of prostate
CPT/HCPCS: 36415; 80053; 83615; 84153; 84403; 85025; 96402; 99214; 99215; J9217

== ENCOUNTER 2025-10-17 11:48 | Oncology outpatient (recurring) (ONCR) | payer MEDICARE, OTHER, SELFPAY ==
[2025-10-17 12:04] LABS: Hematocrit 39.0 % (37-53); Hemoglobin 12.70 g/dL (11.27-16.99); Mean Corpuscular HGB Conc 32.6 g/dL (30-55); Mean Corpuscular Hemoglobin 29.4 pg (27-33); Mean Corpuscular Volume 90.3 fl (82-101); Nucleated Red Blood Cells % 0 %; Platelet Count 270 10^3/cmm (157-399); Red Blood Count 4.32 10^6/uL (3.85-5.65); White Blood Count 12.75 10^3/uL (3.29-11.43)
[2025-10-17 12:36] LABS: Alanine Aminotransferase 20 U/L (0-41); Albumin Level 4.0 g/dL (3.5-5.2); Alkaline Phosphatase 141 U/L (40-130); Anion Gap 14.0 (5-19); Aspartate Amino Transferase 21 U/L (0-40); Blood Urea Nitrogen 20 mg/dL (8-23); Calcium 8.9 mg/dL (8.5-10.5); Carbon Dioxide 25 mmol/L (22-29); Chloride 101 mmol/L (98-107); Globulin 2.7 g/dL (1.3-4.6); Glucose 106 mg/dL (65-115); Osmolality Calculated 285 mOsm/kg (285-295); Potassium 4.0 mmol/L (3.5-5.1); Prostate Specific Antigen 0.035 ng/mL (0-4); Sodium 136 mmol/L (136-145); Total Protein 6.7 g/dL (6.6-8.7)
[2025-10-17] MEDS: leuprolide 22.5 mg Kit IM (13:15)
== END 2025-10-25 23:59 | disposition home or self-care (01) ==
PROVIDERS: Visit Provider Internal Medicine Medical Oncology
DX: Z53.9 Procedure and treatment not carried out, unspecified reason; Z51.11 Encounter for antineoplastic chemotherapy; C61 Malignant neoplasm of prostate; C77.5 Secondary and unspecified malignant neoplasm of intrapelvic lymph nodes; C79.51 Secondary malignant neoplasm of bone; Z92.3 Personal history of irradiation; Z87.891 Personal history of nicotine dependence; Z79.899 Other long term (current) drug therapy
CPT/HCPCS: 80053; 84153; 84403; 85025; 96402; 99213; J9217